=== PATIENT | female | born 1970 | race Caucasian/White ===

== ENCOUNTER 2017-11-02 18:22 | Emergency (ER) | payer SELFPAY ==
[~2017-11-02 18:22] MED LIST: CIPR500T4 PO; FLAG500T PO; LITH300 PO; LORTA5 PO; SERO200T2 PO
[2017-11-02 18:34] VITALS: BP 139/79; PULSE 88; RESP 18; TEMP 97.7; O2SAT 99
[2017-11-02] MEDS ORDERED: MAGICPED SWISH-SWAL (19:09)
[2017-11-02] MEDS ORDERED: PENI500T PO (19:09)
--- NOTE | 2017-11-02 19:15 | PD ---
HPI Chief Complaint: Oral / Dental Pain or Problem Time Seen by Provider: 18:58 Travel History International Travel<30 days: No Contact w/Intl Traveler<30days: No Traveled to known affect area: No History of Present Illness HPI 47-year-old female presents to the emergency room for evaluation of 2 painful oral lesions that have been present for the past 2 days. Pain is severe, worse with eating, drinking, or swallowing. She has been using [id number] Orajel with minimal relief in symptoms. Tylenol, Motrin have not been helping at all. She denies any significant dental pain. States she feels like she has had a cold for the past several weeks. No objective fevers. PFSH Past Medical History Hx Anticoagulant Therapy: No Blood Disorders: No Bipolar Disorder: Yes Depression: Yes Cancer: No Cardiovascular Problems: No Chemotherapy: No COPD: Yes Cerebrovascular Accident: No Diabetes: No Endocrine: No Genitourinary: No Immune Disorder: No Musculoskeletal: No Neurologic: No Reproductive: No Respiratory: Yes (COPD) : 3 Para: 2 Miscarriage: 1 Past Surgical History Abdominal Surgery: Yes (TUBAL AND APPENDECTOMY) Appendectomy: Yes Gynecologic Surgery: Yes (FALLOPIAN AND OVARY REMOVED D/T ADHESIONS) Hysterectomy: Yes (PARTIAL) Other Surgery: Yes Social History Alcohol Use: Yes (OCCASIONALLY) Tobacco Use: Yes (5-6 CIG PER DAY) Substance Use: No Allergies-Medications (Allergen,Severity, Reaction): Coded Allergies: aspirin (Unverified Allergy, Severe, N/V, 04/20/17) Reported Meds & Prescriptions Reported Meds & Active Scripts Active Magic Mouthwash Pediatric/Adult Liq (Lidocaine/Diphenhydr/Alum/Mg/Simeth) 60 Ml Susp 5 Ml SWISH-SWAL ACHS Each 5mL contains: Diphenydramine 4.5mg, Viscous Lidocaine 2% 10mg, Maalox Advanced Regular Strength 2.7ml Penicillin V Potassium 500 Mg Tab 500 Mg PO Q8H 7 Days [place] 5-325 mg (Hydrocodone-Acetaminophen 5-325 mg) 5 mg/325 mg Tab 1 Tab PO Q6H PRN Flagyl (Metronidazole) 500 Mg Tab 500 Mg PO BID 7 Days Cipro (Ciprofloxacin HCl) 500 Mg Tab 500 Mg PO BID 7 Days Reported Seroquel XR 200 mg (Quetiapine Fumarate) 200 Mg Tab 400 Mg PO HS Lithotabs ([place] Carbonate) 300 Mg Tab 300 Mg PO Q12 Review of Systems Except as stated in HPI: all other systems reviewed are Neg Physical Exam Narrative GENERAL: Well-nourished, well-developed female in no acute distress. Afebrile. Ambulatory. SKIN: Focused skin assessment warm/dry. HEAD: Normocephalic. EYES: No scleral icterus. No injection or drainage. NECK: Supple, trachea midline. No JVD or lymphadenopathy. ENT: Mucosa pink and moist. No erythema or exudates. No uvular edema. No uvular , palatal, or tonsillar deviation. Airway patent. DENTAL: Severe decay throughout. No malocclusion. There are 2 bullous symmetrical lesions on either side of tooth #27. They are tender to palpation. No significant surrounding erythema or edema. Tooth is nontender. CARDIOVASCULAR: Regular rate and rhythm without murmurs, gallops, or rubs. RESPIRATORY: Breath sounds equal bilaterally. No accessory muscle use. Data Data Last Documented VS Vital Signs Date Time Temp Pulse Resp B/P (MAP) Pulse Ox O2 Delivery O2 Flow Rate FiO2 11/02/17 18:34 97.7 88 18 139/79 (99) 99 MDM Medical Decision Making Medical Screen Exam Complete: Yes Emergency Medical Condition: Yes Medical Record Reviewed: Yes Differential Diagnosis Aphthous ulcer, gingivitis, gingivostomatitis, abscess, leukoplakia Narrative Course 47-year-old female presents to the ED for evaluation of painful mouth lesions for 2 days. Physical exam reveals 2 bullous symmetrical lesions on either side of tooth #27. They are tender to palpation. No significant surrounding erythema or edema. Tooth is nontender. Likely viral in nature given associated upper respiratory infection. Patient will be treated for dental infection given significant dental decay. Discharge with prescriptions for Magic mouthwash and penicillin. Told to follow-up with a primary care physician or return for worsening symptoms. She understands and agrees to plan. Diagnosis Primary Impression: Oral mucosal lesion Referrals: Primary Care Physician Additional Instructions: Rest and drink plenty of fluids. Magic mouthwash as directed. Penicillin as directed, until gone. Take ibuprofen with food as directed, as needed for pain. Follow-up with a primary care physician. Return to the emergency room for worsening symptoms. Med/Other Pt SpecificInfo: Prescription(s) given Scripts Gbquhgbiycyigye-Jpjbhqqes-Fyc-Alum-Simeth Liq (Magic Mouthwash Pediatric/Adult Liq) 60 Ml Susp 5 ML SWISH-SWAL ACHS for Mouth sores, #60 ML 0 Refills Each 5mL contains: Diphenydramine 4.5mg, Viscous Lidocaine 2% 10mg, Maalox Advanced Regular Strength 2.7ml Prov: Debra Shultz DO 11/02/17 Penicillin V Potassium (Penicillin V Potassium) 500 Mg Tab 500 MG PO Q8H for Infection for 7 Days, #21 TAB 0 Refills Prov: Debra Shultz DO 11/02/17 Disposition: 01 DISCHARGE HOME Condition: Stable [place] [facility] Nov 02, 2017 19:15
== END 2017-11-02 19:51 | disposition home or self-care (01) ==
LOC: NEPK 18:22
DX: K13.70 Unspecified lesions of oral mucosa (principal); F31.9 Bipolar disorder, unspecified; J44.9 Chronic obstructive pulmonary disease, unspecified; F17.210 Nicotine dependence, cigarettes, uncomplicated
CPT/HCPCS: 99283